=== PATIENT | female | born 1950 | race Caucasian/White ===

== ENCOUNTER → 2016-08-15 | Outpatient (CLI) | payer BC ==
[~2016-08-15] MED LIST: VALA500T17 PO
--- NOTE | 2016-08-15 18:49 | Diagnostic Imaging Report ---
Bilateral screening mammogram The current study was also evaluated with a Computer Aided Detection (CAD) system. Indication: Screening. No current complaints stated on the questionnaire. COMPARISON: 09/30/14 FINDINGS: The breasts are composed of heterogeneously dense parenchyma which may decrease mammographic sensitivity. There are scattered benign-appearing calcifications. Allowing for technique and positional differences, no suspicious change is seen. IMPRESSION: Dense breasts with no definite change. ACR BI-RADS Category 2: Benign findings. Result letter will be mailed to the patient. Note: At least 10% of breast cancer is not imaged by mammography. Dictated by: Dictated on workstation # [id number]
== END ==
LOC: RAD 11:04
PROVIDERS: ATTEND Family Medicine
DX: Z12.31 Encounter for screening mammogram for malignant neoplasm of breast (principal)
CPT/HCPCS: 77067

== ENCOUNTER → 2017-08-22 | Outpatient (CLI) | payer MEDICARE ==
--- NOTE | 2017-08-22 13:16 | Diagnostic Imaging Report ---
INDICATION: Routine screening. Comparison is made with prior mammogram from 08/15/2016 and 09/30/2014. 2-D and 3-D bilateral screening mammography was performed with CAD. The current study was also evaluated with a Computer Aided Detection (CAD) system. Bilateral breast implants are again noted. Implant contours appear stable. Scattered fibroglandular densities are identified bilaterally. The parenchymal pattern is stable. No mass or malignant appearing microcalcifications are seen. There are benign calcifications bilaterally. The axillae are unremarkable. IMPRESSION: BI-RADS category 2 No mammographic features suspicious for malignancy are identified. ACR BI-RADS Category 2: Benign findings. Result letter will be mailed to the patient. Note: At least 10% of breast cancer is not imaged by mammography. Dictated by: Dictated on workstation # [id number]
== END ==
LOC: RAD 08:34
PROVIDERS: ATTEND Family Medicine
DX: Z12.31 Encounter for screening mammogram for malignant neoplasm of breast (principal)
CPT/HCPCS: 77067

== ENCOUNTER → 2018-08-23 | Outpatient (CLI) | payer MEDICARE ==
--- NOTE | 2018-08-23 19:27 | Diagnostic Imaging Report ---
EXAMINATION: Digital mammogram bilateral screening. The current study was also evaluated with a Computer Aided Detection (CAD) system. 3-D tomosynthesis was also performed and reviewed. INDICATION: Screening. This study was compared to the prior exams of 08/22/2017, 08/15/2016, and 09/30/2014. At this time, there are no current complaints. FINDINGS: As noted on the prior exam, there are bilateral breast implants in place. The implants appear similar to the previous study. There is no sign of an extracapsular rupture of either implant. The fibroglandular tissue overlying the implants is heterogeneously dense. This does limit the sensitivity of this exam. Overall, there does not appear to have been any significant change. There is no primary or secondary sign of malignancy noted. IMPRESSION: 1. There is no evidence for malignancy. 2. The implants appear stable. ACR BI-RADS Category 1: Negative. Result letter will be mailed to the patient. Note: At least 10% of breast cancer is not imaged by mammography. Dictated by: Dictated on workstation # [id number]
== END ==
LOC: RAD 14:32
PROVIDERS: ATTEND Family Medicine
DX: Z12.31 Encounter for screening mammogram for malignant neoplasm of breast (principal); Z98.82 Breast implant status
CPT/HCPCS: 77067

== ENCOUNTER → 2020-08-28 | Outpatient (CLI) | payer MEDICARE ==
--- NOTE | 2020-08-28 13:22 | Diagnostic Imaging Report ---
INDICATION: Routine screening. COMPARISON is made with prior mammograms from 08/23/2018 and 08/22/2017. 2-D and 3-D bilateral screening mammography was performed with CAD. Bilateral breast implants are noted. Implant contours remain stable. Both breasts are heterogeneously dense, limiting the sensitivity of mammography. There are benign calcifications in the right breast. No mass or malignant appearing microcalcifications are seen. Axillae are unremarkable. IMPRESSION: BI-RADS Category 2 No mammographic features suspicious for malignancy are identified. ACR BI-RADS Category 2: Benign findings. Result letter will be mailed to the patient. Note: At least 10% of breast cancer is not imaged by mammography. Dictated by: Dictated on workstation # [id number]
== END ==
LOC: RAD 08:56
PROVIDERS: ATTEND Family Medicine
DX: Z12.31 Encounter for screening mammogram for malignant neoplasm of breast (principal)
CPT/HCPCS: 77063; 77067

== ENCOUNTER → 2021-07-21 | Outpatient (CLI) | payer MEDICARE ==
--- NOTE | 2021-07-21 14:48 | Diagnostic Imaging Report ---
Bilateral breast ultrasound. Indication: Implant rupture There are no prior breast ultrasound examinations available for comparison. The screening mammogram performed on 08/28/2020 noted bilateral breast implants. The implants appear to be intact. There is no sign of malignancy either. At this time there is clinical concern regarding a rupture of the implant on the right. The ultrasound examination of the right breast implant does show a small collection of fluid along the superolateral margin of the implant. I am not convinced that this is related to an implant rupture. Even so, if a more sensitive evaluation of the the implant is desired, then MRI would be recommended. There is no sign of implant rupture on the left. No other abnormality is noted. Impression: 1. There is a small collection of fluid adjacent to the right breast implant. This is suspicious but not conclusive for an implant rupture. Recommendations as above. 2. The left breast implant seems to be intact. 3. These results were discussed with Dr. Berta Marvin. ACR BI-RADS Category 0: Incomplete. (Needs additional imaging evaluation). Result letter will be mailed to the patient. Note: At least 10% of breast cancer is not imaged by mammography. Dictated by: Dictated on workstation # [id number]
== END ==
LOC: RAD 08:48
PROVIDERS: ATTEND Family Medicine
DX: N64.4 Mastodynia (principal)
CPT/HCPCS: 76641

== ENCOUNTER → 2021-09-07 | Outpatient (CLI) | payer MEDICARE ==
--- NOTE | 2021-09-07 13:16 | Diagnostic Imaging Report ---
INDICATION: Routine screening. COMPARISON: 08/28/2020 and 08/23/2018. TECHNIQUE: 2D and 3D bilateral screening mammography was performed with CAD. FINDINGS: Bilateral breast implants are again noted. The implant contours appear to be stable. No definite evidence of extracapsular rupture is seen. Both breasts are heterogeneously dense, limiting the sensitivity of mammography. The parenchymal pattern is stable. No mass or malignant-appearing microcalcifications are seen. The axillae are unremarkable. IMPRESSION: No mammographic features suspicious for malignancy are identified. ACR BI-RADS Category 2: Benign findings. Result letter will be mailed to the patient. Note: At least 10% of breast cancer is not imaged by mammography. Dictated by: Dictated on workstation # [id number]
== END ==
LOC: RAD 09:16
PROVIDERS: ATTEND Family Medicine
DX: Z12.31 Encounter for screening mammogram for malignant neoplasm of breast (principal)
CPT/HCPCS: 77063; 77067

== ENCOUNTER → 2022-10-04 | Outpatient (CLI) | payer MEDICARE ==
--- NOTE | 2022-10-04 14:17 | Diagnostic Imaging Report ---
EXAMINATION: 3D bilateral screening mammogram with CAD. INDICATION: Screening. COMPARISON: This study was compared to the prior exams of 09/07/2021, 08/28/2020, and 08/23/2018. PERSONAL HISTORY: At this time, there are no current complaints. FINDINGS: As noted on the prior exams, there are bilateral breast implants in place. The implants appear stable. There is no sign of an extracapsular rupture of either implant. The fibroglandular tissue overlying the breast implants is heterogeneously dense. This does limit the sensitivity of this exam. When compared to the previous study, there does not appear to have been any significant change. There is no primary or secondary sign of malignancy noted. IMPRESSION: 1. There is no evidence for malignancy. 2. The bilateral breast implants seen previously appear stable. ACR BI-RADS Category 1: Negative. Result letter will be mailed to the patient. Note: At least 10% of breast cancer is not imaged by mammography. Dictated by: Dictated on workstation # [id number]
== END ==
LOC: RAD 10:12
PROVIDERS: ATTEND Family Medicine
DX: Z12.31 Encounter for screening mammogram for malignant neoplasm of breast (principal); Z98.82 Breast implant status
CPT/HCPCS: 77063; 77067